=== PATIENT | male | born 1995 | race African-American/Black ===

== ENCOUNTER 2021-03-17 12:15 | Emergency (ER) | payer BC, SELFPAY ==
[2021-03-17 12:29] VITALS: BP 203/125; PULSE 99; RESP 18; TEMP 37.2; O2SAT 100
[2021-03-17 13:00] VITALS: BP 200/133
--- NOTE | 2021-03-17 13:10 | ED.GENADULT ---
HPI - General Adult General Chief complaint: Unspecified Stated complaint: High Blood Pressure Time Seen by Provider: 03/17/21 13:03 Source: patient, family and RN notes reviewed Mode of arrival: ambulatory Limitations: no limitations History of Present Illness HPI narrative: 25 year old male accompanied by mother presents to express care with complaints of experiencing visual floaters to right eye, some headaches, and episode yesterday of having chest tightness that lasted about 15 minutes then went away. Patient states that he has had high blood pressure in the past but has never been put on medications. He states that he has has problems with anxiety and depression and he was sent to medical doctor for evaluation by his psychiatrist in the past but was not prescribed any blood pressure medication. Mother states that there is hypertension and strokes in the family. MD complaint: uncontrolled hypertension Onset (ago): day(s) Location: head (intermittent headache), eyes (floaters) and chest (occaisional chest tight) Radiation: non-radiation Quality: aching Pain Consistency: intermittent Treatments prior to arrival: none Related Data Allergies Allergy/AdvReac Type Severity Reaction Status Date / Time Penicillins Allergy Unknown RASH Verified 03/17/21 12:56 Review of Systems Review of Systems: Narrative: CONSTITUTIONAL: Denies fever, chills, or sweats. EYES: Positive for visual floaters,no acute vision changes, no redness, or discharge. ENT: Denies rhinorrhea, congestion, sore throat, or otalgia. CARDIOVASCULAR: Denies acute chest pain at present,no palpitations, or edema.Reports episodes of chest tightness yesterday lasting for 15 minutes RESPIRATORY: Denies cough or dyspnea. GASTROINTESTINAL: Denies abdominal pain, nausea, vomiting, or diarrhea. GENITOURINARY: Denies dysuria or hematuria. SKIN: Denies rash or itching. MUSCULOSKELETAL: Denies back pain, joint pain, or myalgia. NEUROLOGIC: Intermittent headache, no numbness, or weakness. PSYCHIATRIC: Positive anxiety or depression. All systems reviewed & are unremarkable except as noted in HPI and below PMFSH Past Medical History Medical History (Updated 03/18/21 @ 00:00 by Background Daemon) Anxiety and depression Surgical History Surgical History (Updated 03/19/21 @ 22:17 by Nilam Stern NP) No history of previous surgery Family History Family History (Updated 03/19/21 @ 22:16 by Nilam Stern NP) Other Cerebrovascular accident Diabetes mellitus Heart disease Social History Social History (Updated 03/19/21 @ 22:16 by Nilam Stern NP) Smoking status: Never smoker Alcohol intake: unknown Substance use: never Living arrangements: with family Gender identity (if verbalized by the patient): Male Comments At time of signature, agree with nursing past medical, surgical, social and family history. There is no relevant family history pertinent to the presenting complaint Exam Narrative: Exam Narrative: GENERAL: Well-appearing, well-nourished, obese and in no acute distress. HEAD: Normocephalic, atraumatic. EYES: PERRLA and EOMI.some visual floater to right eye ENT: Nares clear, no rhinorrhea or epistaxis. Mucous membranes moist. NECK: Supple.no lymphadenopathy CHEST: Clear to auscultation. No respiratory distress.SAO2 100% on room air HEART: Regular rate and rhythm. No murmur heard. Normal peripheral pulses, no peripheral edema noted ABDOMEN: Soft, nontender, nondistended, normal active bowel sounds. EXTREMITIES: Normal range of motion. No edema. SKIN: Warm, dry, no rash. NEURO: No focal deficits. Alert and oriented x3. Course Vital Signs Vital signs: Vital Signs Temperature 37.2 C 03/17/21 12:29 Pulse Rate 99 03/17/21 12:29 Respiratory Rate 18 03/17/21 12:29 Blood Pressure 203/125 H 03/17/21 12:29 Pulse Oximetry 100 03/17/21 12:29 Temperature 37.2 C 03/17/21 12:29 Pulse Rate 97
--- NOTE | 2021-03-17 13:16 | PC.NURSE ---
1305- spoke with pt and mother in room, and they state that they want [facility] ([facility]) .
[2021-03-17] MEDS: cloNIDine HCL 0.1 MG TABLET PO (13:24)
[2021-03-17 13:32] VITALS: BP 200/133; PULSE 97; RESP 19; O2SAT 99
== END 2021-03-17 13:25 | disposition short-term general hospital (02) ==
PROVIDERS: Emergency Provider Registered Nurse
DX: I10 Essential (primary) hypertension (principal)
CPT/HCPCS: 99213; A9270; G0463